=== PATIENT | female | born 1980 | race Hispanic/Latino ===

== ENCOUNTER 2023-02-28 12:26 | Emergency (ER) | payer SELFPAY ==
--- OUTSIDE RECORDS SUMMARY | 2023-02-28 12:29 | XMS REPORT | Continuity of Care Document ---
:1980 Author Organization [facility] t Address [address] [place] [address] [place] [id number] Care Team Providers Name Role Phone Unavailable Unavailable Unavailable Problems This patient has no known problems. Allergies, Adverse Reactions, Alerts This patient has no known allergies or adverse reactions. Medications This patient has no known medications. Procedures This patient has no known procedures. Encounters Start End Encounter Admission Attending Care Care Encounter Source Date/Time Date/Time Type Type Clinicians Facility Department ID 2020-03-27 2020-03-27 Outpatient [facility] 00:00:00 00:00:00 [facility]-[id number] Results This patient has no known results.
[2023-02-28] MEDS ORDERED: IBUPROFEN 200 MG TAB PO ONE (12:56)
--- NOTE | 2023-02-28 13:20 | RAD REPORT ---
EXAM DESCRIPTION: RAD - Elbow Right 3 View - 02/28/2023 1:00 pm CLINICAL HISTORY: Right elbow pain status post injury FINDINGS: Mildly displaced fracture radial head. No dislocation
--- NOTE | 2023-02-28 13:29 | EDPHYS ---
Physician Documentation [facility] Name: Emmy Hussein Age: 43 yrs Sex: Female : 1980 Arrival Date: 02/28/2023 Time: 12:26 Bed DIS7 Private MD: ED Physician Vineet Kendall HPI: 02/28 13:33 This 43 yrs old Female presents to ER via Ambulatory with complaints of Fall ms3 Injury. 13:33 43-year-old female with past medical history of hypothyroidism presents to the [facility] emergency department status post fall yesterday. Patient states that she was taking her pants off tripped causing her to fall. Patient endorses right elbow pain. Patient denies losing consciousness. Patient denies nausea or vomiting.. Historical: - Allergies: 12:37 Amoxicillin; cm10 - PMHx: 12:37 Hypothyroidism; cm10 - Immunization history:: Adult Immunizations unknown. - Social history:: Smoking status: Patient denies any tobacco usage or history of. ROS: 13:33 Constitutional: Negative for fever, and chills. ms3 13:33 Respiratory: Negative for shortness of breath, cough, wheezing, and pleuritic chest pain, Abdomen/GI: Negative for abdominal pain, nausea, vomiting, diarrhea, and constipation, MS/Extremity: Negative for injury and deformity, Neuro: Negative for headache, weakness, numbness, tingling. 13:33 ENT: Positive for Nose contusion, 13:33 MS/extremity: Positive for Right elbow pain, 13:33 All other systems are negative, Exam: 13:33 Constitutional: This is a well developed, well nourished patient who is awake, alert, ms3 and in no acute distress. Head/Face: Normocephalic, atraumatic. Neck: Trachea midline, no cervical lymphadenopathy. Supple, full range of motion without nuchal rigidity, or vertebral point tenderness. No Meningismus. Chest/axilla: Normal chest wall appearance and motion. Nontender with no deformity. Cardiovascular: Regular rate and rhythm with a normal S1 and S2. No gallops, murmurs, or rubs. Normal PMI, no JVD. No pulse deficits. Respiratory: Lungs have equal breath sounds bilaterally, clear to auscultation and percussion. No rales, rhonchi or wheezes noted. No increased work of breathing, no retractions or nasal flaring. Abdomen/GI: Soft, non-tender, with normal bowel sounds. No distension or tympany. No guarding or rebound. No evidence of tenderness throughout. 13:33 ENT: No septal hematomas visualized. 13:33 Musculoskeletal/extremity: Extremities: Right elbow with medial epicondyle tenderness. Decreased range of motion. Radial pulse 2+/4, sensation intact, Vital Signs: 12:36 BP 160 / 89; Pulse 77; Resp 18; Temp 97.8; Pulse Ox 97% on R/A; Weight 64.86 kg; Height cm10 5 ft. 10 in. ; Pain 8/10; 12:38 BP 146 / 95; cm10 12:36 Body Mass Index 20.52 (64.86 kg, 177.8 cm) cm10 12:36 Pain Scale: Adult cm10 MDM: 12:44 Patient medically screened. ms3 13:33 Differential diagnosis: abrasion, contusion, fracture, sprain, strain. Data reviewed: ms3 vital signs, nurses notes, radiologic studies, and as a result, I will discharge patient. I considered the following discharge prescriptions or medication management in the emergency department Medications were administered in the Emergency Department. See MAR. Independent interpretation of the following test(s) in the Emergency Department X-Ray: My interpretation is Right elbow x-ray reviewed by me displays radial head fracture. Care significantly affected by the following Social Determinants of Health: Poor access to healthcare and/or lack of insurance. Counseling: I had a detailed discussion with the patient and/or guardian regarding the historical points, exam findings, and any diagnostic results supporting the discharge/admit diagnosis, radiology results, the need for outpatient follow up, to return to the emergency department if symptoms worsen or persist or if there are any questions or concerns that arise at home. Special discussion: I discussed with the patient/guardian in detail that at this point there is no indication for admission to the hospital. It is understood, however, that if the symptoms persist or worsen the patient needs to return immediately for re-evaluation. ED course: Discussed radial head fracture with patient. Patient placed in posterior splint and splint. Patient to follow-up with Dr. Quintana in 2 to 3 days. Patient understands and agrees with plan. All questions were answered. Return precautions discussed include worsening symptoms, or any other concern. On reevaluation no signs of compartment syndrome present.. 02/28 12:41 Order name: Elbow Right 3 View XRAY; Complete Time: 13:22 cm10 02/28 13:23 Order name: Splint - Elbow - Posterior; Complete Time: 14:21 ms3 02/28 13:24 Order name: Sling; Complete Time: 14:21 ms3 Administered Medications: 12:44 Drug: Ibuprofen PO 600 mg PO once Route: PO; cm10 Disposition Summary: 02/28/23 13:29 Discharge Ordered Notes: Location: Home ms3 Condition: Stable ms3 Diagnosis - Fracture of head of radius ms3 - Fall on same level, unspecified ms3 - Contusion of nose, initial encounter ms3 Followup: ms3 - With: Luiz Quintana MD - When: 2 - 3 days - Reason: Recheck today's complaints Discharge Instructions: - Discharge Summary Sheet ms3 - Facial or Scalp Contusion ms3 - Radial Head Fracture ms3 - Radial Head Fracture, [id number] ms3 Forms: - Medication Reconciliation Form ms3 - Thank You Letter ms3 - Antibiotic Education ms3 - Prescription Opioid Use ms3 - Patient Portal Instructions ms3 - Leadership Thank You Letter ms3 - Work release form kb3 Signatures: Dispatcher [employer] EDMS Vineet Kendall DO DO ms3 Clara Lamb RN RN cm10 Corrections: (The following items were deleted from the chart) 12:38 12:37 PMHx: Unable to Obtain; cm10 cm10 12:38 12:37 PMHx: None; cm10 cm10
--- NOTE | 2023-02-28 13:29 | ER ---
Nurse's Notes [facility] Name: Emmy Hussein Age: 43 yrs Sex: Female : 1980 Arrival Date: 02/28/2023 Time: 12:26 Bed DIS7 Private MD: Diagnosis: Fracture of head of radius;Fall on same level, unspecified;Contusion of nose, initial encounter Presentation: 02/28 12:36 Chief complaint: Patient states: right elbow pain s/p falling yesterday. Pt states that cm10 she tripped and fell. No LOC. Coronavirus screen: Vaccine status: Patient reports receiving the 2nd dose of the covid vaccine. Client denies travel out of the [place] in the last 14 days. Ebola Screen: Patient denies travel to an Ebola-affected area in the 21 days before illness onset. No symptoms or risks identified at this time. Initial Sepsis Screen: Does the patient meet any 2 criteria? No. Patient's initial sepsis screen is negative. Does the patient have a suspected source of infection? No. Patient's initial sepsis screen is negative. Risk Assessment: Do you want to hurt yourself or someone else? Patient reports no desire to harm self or others. Onset of symptoms was February 28, 2023. 12:36 Method Of Arrival: Ambulatory cm10 12:36 Acuity: LIZETTE 4 cm10 Triage Assessment: 12:38 General: Appears in no apparent distress. comfortable, Behavior is calm, cooperative. cm10 Pain: Complains of pain in right elbow. 12:38 Neuro: No deficits noted. Level of Consciousness is awake, alert, obeys commands, cm10 Oriented to person, place, time, situation. Respiratory: No deficits noted. Airway is patent Respiratory effort is even, unlabored, Respiratory pattern is regular, symmetrical. Derm: No deficits noted. No signs and/or symptoms reported regarding the dermatologic system. Skin is intact, Skin is pink, warm \T\ dry. Musculoskeletal: No deficits noted. Reports pain in right elbow. Historical: - Allergies: 12:37 Amoxicillin; cm10 - PMHx: 12:37 Hypothyroidism; cm10 - Immunization history:: Adult Immunizations unknown. - Social history:: Smoking status: Patient denies any tobacco usage or history of. Screenin:39 [facility] ED Fall Risk Assessment (Adult) History of falling in the last 3 months, cm10 including since admission Yes- single mechanical fall (1 pt) Confusion or Disorientation No (0 pts) Intoxicated or Sedated No (0 pts) Impaired Gait No (0 pts) Mobility Assist Device Used No (0 pt) Altered Elimination No (0 pt) Score/Fall Risk Level 0 - 2 = Low Risk Oriented to surroundings, Maintained a safe environment, Hourly rounding (assess needs \T\ fall precautionary measures) done. Abuse screen: Denies threats or abuse. Denies injuries from another. Nutritional screening: No deficits noted. Tuberculosis screening: No symptoms or risk factors identified. Vital Signs: 12:36 BP 160 / 89; Pulse 77; Resp 18; Temp 97.8; Pulse Ox 97% on R/A; Weight 64.86 kg; Height cm10 5 ft. 10 in. ; Pain 8/10; 12:38 BP 146 / 95; cm10 12:36 Body Mass Index 20.52 (64.86 kg, 177.8 cm) cm10 12:36 Pain Scale: Adult cm10 ED Course: 12:27 Patient arrived in ED. as 12:31 Vineet Kendall DO is Attending Physician. ms3 12:37 Triage completed. cm10 12:38 Arm band placed on Patient placed in waiting room. cm10 12:40 Patient has correct armband on for positive identification. Provided Education on: ER cm10 process and procedures. . 13:02 Elbow Right 3 View XRAY In Process Unspecified. EDMS 13:28 Luiz Lara MD is Referral Physician. ms3 14:21 Orthoglass splint: posterior long arm splint applied to the right arm. Sling applied to em1 right arm. 16:22 No provider procedures requiring assistance completed. Patient did not have IV access cm10 during this emergency room visit. Administered Medications: 12:44 Drug: Ibuprofen PO 600 mg PO once Route: PO; cm10 Medication: 12:39 VIS not applicable for this client. cm10 Outcome: 13:29 Discharge ordered by . ms3 18:26 Patient left the ED. kb3 Signatures: Dispatcher [employer] EDMS Fatmata Lamb Eric em1 Vineet Kendall DO DO ms3 Meggan Mohan RN RN kb3 Clara Lamb RN RN cm10 Corrections: (The following items were deleted from the chart) 12:38 12: PMHx: Unable to Obtain; cm10 cm10 PMHx: None; cm10 cm10
[2023-02-28 19:31] VITALS: TEMP 97.8; O2SAT 97
[2023-02-28 19:32] VITALS: BP 146/95
== END 2023-02-28 18:26 | disposition home or self-care (01) ==
LOC: ER 12:26
DX: S52.121A Displaced fracture of head of right radius, initial encounter for closed fracture (principal); S00.33XA Contusion of nose, initial encounter; E03.9 Hypothyroidism, unspecified; W18.30XA Fall on same level, unspecified, initial encounter
CPT/HCPCS: 99283